=== PATIENT | male | born 1995 | race Caucasian/White ===

== ENCOUNTER 2019-12-05 16:54 | Emergency (ER) | payer SELFPAY ==
[2019-12-05] MEDS ORDERED: Lidocaine 1% w/Epinephrine 1:100K 20 ML VIAL ONE (17:01)
[2019-12-05] MEDS ORDERED: Lidocaine 1% (PF) 30 ML VIAL ONE (17:02)
[2019-12-05] MEDS ORDERED: Ibuprofen 100 MG/5 ML UDCUP ONE (17:47)
--- NOTE | 2019-12-05 18:01 | RAD ---
Left knee 4 views HISTORY: Injury. FINDINGS: Joint spaces are preserved. No acute fracture, dislocation, or fluid distention of the supr apatellar bursa. Mild soft tissue swelling over the anterior aspect of the knee. IMPRESSION : No acute osseous abnormalities are demonstrated.
--- NOTE | 2019-12-05 18:03 | RAD ---
Right hand 3 views HISTORY: Pain. FINDINGS: Joint spaces are preserved. Nondisplaced crush injury appearance of the posterior cortex of the distal phalanx middle finger. No intra-articular extension. Overlying soft tissue injury. No metallic foreign bodies. Wrist and bases of the metacarpals partially obscured by overlying metallic artifact. IMPRESSION : Nondisplaced fracture involving the distal phalanx of the right middle finger.
[2019-12-05] MEDS ORDERED: Adacel (T-DAP) 0.5 ML SYRINGE ONE (18:15)
[2019-12-05] MEDS ORDERED: Cephalexin 250 MG CAP ONE (18:37)
== END 2019-12-05 18:49 | disposition home or self-care (01) ==
LOC: ERS 16:54
DX: S62.662A Nondisplaced fracture of distal phalanx of right middle finger, initial encounter for closed fracture (principal); S81.811A Laceration without foreign body, right lower leg, initial encounter; S30.810A Abrasion of lower back and pelvis, initial encounter; S80.212A Abrasion, left knee, initial encounter; Z87.891 Personal history of nicotine dependence; Y04.2XXA Assault by strike against or bumped into by another person, initial encounter
CPT/HCPCS: 90471; 90715; J2001